=== PATIENT | male | born 1960 | race Two or more races ===

== ENCOUNTER 2025-03-29 21:20 | Inpatient (IN) | payer MEDICARE, OTHER ==
[~2025-03-29] VITALS: Ht 170.2 cm; Wt 85.7 kg
[2025-03-29 21:47] VITALS: O2SAT 97
[2025-03-29 22:11] LABS: Hematocrit 42.9 % (41.0-53.0); Hemoglobin 14.7 g/dL (13.5-17.5); Mean Corpuscular Hemoglobin 31.1 pg (28.0-32.0); Mean Corpuscular Volume 91.0 fL (80.0-100.0); Nucleated Red Blood Cells % 0.0 %
[2025-03-29 22:20] LABS: Potassium 3.5 mmol/L (3.5-5.1); Sodium 143 mmol/L (136-145)
[2025-03-29 22:21] LABS: Anion Gap 10 (5-15); Calcium 9.8 mg/dL (8.7-10.4); Carbon Dioxide 25 mmol/L (20-31)
--- NOTE | 2025-03-29 22:21 | ED.PDOC ---
History of Present Illness HPI Comments 65-year-old male presents with chief complaint of hypertension. Patient states his blood pressure has been elevated, unprovoked, since last night. Last at home blood pressure reading of 214 systolic prior to ED arrival. He reports being compliant with and taking his metoprolol at home, and noted his blood pressure initially improved after a workout this morning. No notable recent changes in medication, lifestyle, or diet. Associated intermittent headache for the past 2 days, right sided, gradual onset, throbbing, constant. He denies an having any weakness, numbness, patient tripped, speech or vision changes, chest pain, falls, head injury, or further acute symptoms. Upon arrival to ED triage, patient a blood pressure of 221/118. Chief Complaint: High Blood Pressure Time Seen by MD: 21:50 Reviewed Notes: Nurses Notes, Medications, Allergies Allergies: Coded Allergies: NO KNOWN ALLERGIES (Unverified , 03/29/25) Information Source: Patient Mode of Arrival: Ambulatory Severity: Moderate Timing: Hours Duration: Since onset Prehospital treatment: Treatment (See HPI) Past Medical History PAST MEDICAL HISTORY: HTN (Metoprolol) Surgical History: Denies all surgeries Family History Family History: Unknown Social History Smoker: Non-Smoker Alcohol: Denies ETOH Use Drugs: Denies Drug Use Lives In: Home Neurological: reports: headache All Other Systems: Reviewed and Negative (Comprehensive review of systems are negative unless otherwise stated in HPI) Physical Exam General Appearance: No Apparent Distress, Normal HEENT: Normal ENT Inspection, Pharynx Normal, TMs Normal Neck: Full Range of Motion, Non-Tender, Normal, Normal Inspection Respiratory: Chest Non-Tender, Lungs Clear, No Accessory Muscle Use, No Respiratory Distress, Normal Breath Sounds Cardiovascular: Bradycardia, No Edema, No JVD, No Murmur, No Gallop, Normal Peripheral Pulses, Other (Regular rhythm) Breast Exam: Deferred Gastrointestinal: No Organomegaly, Non Tender, No Pulsatile Mass, Normal Bowel Sounds, Soft Genitalia: Deferred Pelvic: Deferred Rectal: Deferred Extremities: No calf tenderness, Normal capillary refill, Normal inspection, Normal range of motion, Non-tender, No pedal edema Musculoskeletal : Apperance: Normal Neurologic: Alert, patient access specialist II-XII nml as Tested, No Motor Deficits, Normal Affect, Normal Mood, No Sensory Deficits Cerebellar Function: Normal Reflexes: Normal Skin: Dry, Normal Color, Warm Lymphatic: No Adenopathy Was a procedure done? Was a procedure done?: No EKG EKG : Pulse Rate (adult): 54 [place]: Normal Cardiac Rhythm: SB Block: None Hypertrophy: None ST: Normal Comments T-wave inversion in V3 Prolonged MO Differential Dx Considerations may include: Hypertensive emergency, hypertension-primary, inappropriate medication dosage, aneurysm, migraines, tension headache, electrolyte imbalance, dehydration, among others X-Ray, Labs, Meds, VS Vital Signs Date Time Temp Pulse Resp B/P (MAP) Pulse Ox O2 Delivery O2 Flow Rate FiO2 03/29/25 23:16 66 168/91 (116) 03/29/25 23:07 201/103 03/29/25 22:34 210/110 03/29/25 22:31 54 03/29/25 22:27 54 03/29/25 21:47 97 Room Air* 0 21 03/29/25 21:46 98.0 54 16 222/116 (151) 98 98.0 03/29/25 21:26 98.4 50 20 221/118 96 98.4 Lab Test 03/29/25 22:53 03/29/25 22:00 Range/Units Troponin I High Sensitivity 5 6 </=54 ng/L White Blood Count 7.5 4.4-10.8 10^3/uL Red Blood Count 4.72 4.5-5.90 10^6/uL Hemoglobin 14.7 13.5-17.5 g/dL Hematocrit 42.9 41.0-53.0 % Mean Corpuscular Volume 91.0 80.0-100.0 fL Mean Corpuscular Hemoglobin 31.1 28.0-32.0 pg Mean Corpuscular Hemoglobin Concent 34.2 32.0-36.0 g/dL Red Cell Distribution Width 13.7 11.8-14.3 % Platelet Count 161 140-450 10^3/uL Mean Platelet Volume 8.2 6.9-10.8 fL Neutrophils (%) (Auto) 50.9 37.0-80.0 % Lymphocytes (%) (Auto) 37.0 10.0-50.0 % Monocytes (%) (Auto) 8.2 0.0-12.0 % Eosinophils (%) (Auto) 3.1 0.0-7.0 % Basophils (%) (Auto) 0.8 0.0-2.0 % Neutrophils # (Auto) 3.8 1.6-8.6 10 ^3/uL Lymphocytes # (Auto) 2.8 0.4-5.4 10 ^3/uL Monocytes # (Auto) 0.6 0-1.3 10 ^3/uL Eosinophils # (Auto) 0.2 0-0.8 10 ^3/uL Basophils # (Auto) 0.1 0-0.2 10 ^3/uL Nucleated Red Blood Cells 0.0 % Prothrombin Time 10.1 9.3-11.8 sec Prothrombin Time INR 0.95 0.9-1.15 Activated Partial Thromboplast Time 23.5 L 24.5-34.5 SEC Sodium Level 143 136-145 mmol/L Potassium Level 3.5 3.5-5.1 mmol/L Chloride Level 108 H 98-107 mmol/L Carbon Dioxide Level 25 20-31 mmol/L Anion Gap 10 5-15 Blood Urea Nitrogen 17 9-23 mg/dL Creatinine 1.20 0.700-1.30 mg/dL Glomerular Filtration Rate Calc 67 >90 mL/min BUN/Creatinine Ratio 14.2 10.0-20.0 Serum Glucose 105 74-106 mg/dL Calcium Level 9.8 8.7-10.4 mg/dL B-Type Natriuretic Peptide 77.01 0-100 pg/mL Lipase 59 H 12-53 U/L Current Medications Medications (Trade) Dose Ordered Sig/Sugar Route Start Time Stop Time Status Last Admin Hydralazine HCl (Apresoline Injection) 10 mg ONCE ONCE IV 03/29/25 22:00 03/29/25 22:01 DC 03/29/25 22:34 Hydralazine HCl (Apresoline Injection) 10 mg ONCE ONCE IV 03/29/25 23:15 03/29/25 23:16 DC 03/29/25 23:[address] [address] Ph: [phone] DIAGNOSTIC IMAGING Diagnostic Imaging Report : [id number] Signed PATIENT: RADHA WILSON ACCT: [id number] UNIT: [id number] : 1960 LOC: ER ROOM / BED: / AGE / SEX: 65 / M ADM STATUS: REG ER SERVICE 53 ORDERING PHYSICIAN: STEWART ALBA MD PROCEDURE(s): HWOCT - HEAD WITHOUT CONTRAST REASON: WU ORDER NUMBER(s): [id number], ACCESSION NUMBER(s): [id number] EXAM: CT HEAD WITHOUT CONTRAST INDICATION: WU TECHNIQUE: CT of the head without intravenous contrast. Radiation Dose : 1. Head: CT Dose: CTDI volume is 61.16 mGy. Dose-length product is 980.28 mGy*cm The dose indicators for CT are the volume Computed Tomography (CT) Dose Index (CTDIvol) and the Dose Length Product (DLP), and are measured in units of mGy and mGy-cm, respectively. These indicators are not patient dose, but values generated from the CT scanner acquisition factors. The report includes radiation exposure data for exposures received during this examination. COMPARISON: None FINDINGS: Motion and streak artifact degrade fine detail. The cerebral parenchyma appears to be normal configuration and attenuation. The ventricles, cisterns, and sulci appear age-appropriate. There is no evidence for acute territorial infarct, hemorrhage, or mass effect. The orbits are normal. Mild mucosal thickening within the left frontal sinus. The soft tissues and osseous structures appear within normal limits. IMPRESSION: 1. No acute territorial infarct, intracranial hemorrhage, or mass effect. If clinical symptoms persist, MRI may be beneficial in further evaluation. Radiation optimization: All CT scans at this facility use at least one of these dose optimization techniques: automated exposure control mA and/or kV adjustment per patient size (includes targeted exams where dose is matched to clinical indication) or iterative reconstruction. ATED BY: SAUL NGUYEN MD DICTATED DATE/TIME: 03/29/252221 SIGNED BY: SAUL NGUYEN MD SIGNED DATE/TIME: 03/29/252221 CC: [place] [address] Ph: [phone] DIAGNOSTIC IMAGING Diagnostic Imaging Report : [id number] Signed PATIENT: RADHA WILSON ACCT: [id number] UNIT: [id number] : 1960 LOC: ER ROOM / BED: / AGE / SEX: 65 / M ADM STATUS: REG ER SERVICE 53 ORDERING PHYSICIAN: STEWART ALBA MD PROCEDURE(s): CXRP - CHEST PORTABLE REASON: hypertension ORDER NUMBER(s): [id number], ACCESSION NUMBER(s): [id number] INDICATION: hypertension TECHNIQUE: Frontal view of the chest. COMPARISON: None FINDINGS/IMPRESSION: Hazy bilateral pulmonary opacities. Enlarged cardiomediastinal silhouette. No pleural effusion or pneumothorax. No acute osseous abnormality. ATED BY: SAUL NGUYEN MD DICTATED DATE/TIME: 03/29/252251 SIGNED BY: SAUL NGUYEN MD SIGNED DATE/TIME: 03/29/252251 CC: X-Ray, Labs, Meds, VS Comment Patient presenting with headache and uncontrolled hypertension for the past 2 days. Patient is significantly hypertensive on arrival. Neuro exam is nonfocal patient is otherwise well-appearing. Lab work (CBC, BMP) to evaluate for evidence of severe anemia, electrolyte abnormality including hypokalemia, hyperkalemia, hypernatremia, hyponatremia, hyperglycemia, hypoglycemia, etc. EKG and troponin to evaluate for evidence of arrhythmia, ACS, AMI Chest x-ray to evaluate for pneumonia, pneumothorax, volume overload. CTA to evaluate for intracranial hemorrhage, large mass, acute infarct, fracture IV hydralazine Re-evaluate Social determinant surveillance affecting care: Social determinants of health that will affect the patient's care: Poor access to outpatient care/followup (provided outpatient resources) Time of 1ST Reevaluation: 22:30 Reevaluation 1ST: Unchanged Patient Education/Counseling: Diagnosis, Treatment, Other (Need for admission) Family Education/Counseling: No Family Present SEPSIS Sepsis Screen Date sepsis recognized/suspect: Mar 29, 2025 Time Sepsis recognized/suspect: 2125 Recent Procedure: No On Antibiotic Therapy: No Respiratory Rate >20: No Heart Rate >90: No Temp<36 C (96.8 F) or >38.3 C: No SBP <90 or MAP <65 mmHG: No New Acute Mental Status Change: No Is the patient on CPAP, BIPAP,: No Physician Orders Chest Portable (03/29/25 21:54) Head Without Contrast (03/29/25 21:54) Troponin-I Hs (03/30/25 00:54) Electrocardigram (03/29/25 22:54) Electrocardigram (03/30/25 00:54) (Nf) Irbesartan (03/30/25 10:00) Metoprolol Tartrate Tablet (Lopressor Ta (03/30/25 10:00) Atorvastatin (Lipitor) (03/30/25 22:00) Hydralazine Injection (Apresoline Inject (03/29/25 23:45) Admit (03/29/25 23:35) Ondansetron Hcl (Zofran) (03/29/25 23:45) Cardiac Diet-2gna,Lofat,Lochol (03/30/25 Breakfast) Echo 2d Mode Cardiac Dop (03/29/25 23:35) Condition: Stable (03/29/25 23:35) Acetaminophen Tablet (Tylenol Tablet) (03/29/25 23:45) Bedrest With Bathroom Privileg (03/29/25 23:35) Renal Artery Lmtd (03/29/25 23:35) Losartan Tablet (Cozaar Tablet) (03/30/25 10:00) Vital Signs Date Time Temp Pulse Resp B/P (MAP) Pulse Ox O2 Delivery O2 Flow Rate FiO2 03/29/25 23:16 66 168/91 (116) 03/29/25 23:07 201/103 03/29/25 22:34 210/110 03/29/25 22:31 54 03/29/25 22:27 54 03/29/25 21:47 97 Room Air* 0 21 03/29/25 21:46 98.0 54 16 222/116 (151) 98 98.0 03/29/25 21:26 98.4 50 20 221/118 96 98.4 Laboratory Tests Test 03/29/25 22:00 White Blood Count 7.5 10^3/uL (4.4-10.8) Medications Medications Dose Ordered Sig/Sugar Route Start Time Stop Time Status Last Admin Dose Admin Hydralazine HCl 10 mg ONCE ONCE IV 03/29/25 22:00 03/29/25 22:01 DC 03/29/25 22:34 Hydralazine HCl 10 mg ONCE ONCE IV 03/29/25 23:15 03/29/25 23:16 DC 03/29/25 23:07 Departure 1 Departure Time of Disposition: 23:43 (On reassessment, patient persistently hypotensive despite 2 doses of IV hydralazine. Patient bradycardic, so unable to dose patient's home beta-patricia. We will admit for further management of hyperte nsive urgency.) Impression: Primary Impression: Hypertensive urgency Additional Impressions: Acute headache Uncontrolled hypertension Disposition: ADMITTED INPATIENT Admit to: Tele Condition: Serious Critical Care Note Critical Care Time?: Yes (35 min-critical care time only) Critical care comment: hypertensive urgency Stability Stability form required: No Heart Score Heart Score: Heart Score Response (Comments) Value History N/A 0 EKG N/A 0 Age N/A 0 Risk Factors N/A 0 Troponin N/A 0 Total 0 I personally scribed for STEWART ALBA MD ([email or web address]) on 03/29/25 at 22:21. Electronically submitted by Wang Hearn ([email or web address]). I personally scribed for STEWART ALBA MD ([email or web address]) on 03/29/25 at 22:31. Electronically submitted by Wang Hearn ([email or web address]). I personally scribed for STEWART ALBA MD ([email or web address]) on 03/29/25 at 23:18. Electronically submitted by Wang Hearn ([email or web address]). STEWART ALBA MD Mar 29, 2025 22:21
[2025-03-29 22:24] LABS: Chloride 108 mmol/L (98-107)
--- NOTE | 2025-03-29 22:24 | DVH ---
EXAM: CT HEAD WITHOUT CONTRAST INDICATION: WU TECHNIQUE: CT of the head without intravenous contrast. Radiation Dose : 1. Head: CT Dose: CTDI volume is 61.16 mGy. Dose-length product is 980.28 mGy*cm The dose indicators for CT are the volume Computed Tomography (CT) Dose Index (CTDIvol) and the Dose Length Product (DLP), and are measured in units of mGy and mGy-cm, respectively. These indicators are not patient dose, but values generated from the CT scanner acquisition factors. The report includes radiation exposure data for exposures received during this examination. COMPARISON: None FINDINGS: Motion and streak artifact degrade fine detail. The cerebral parenchyma appears to be normal configuration and attenuation. The ventricles, cisterns, and sulci appear age-appropriate. There is no evidence for acute territorial infarct, hemorrhage, or mass effect. The orbits are normal. Mild mucosal thickening within the left frontal sinus. The soft tissues and osseous structures appear within normal limits. IMPRESSION: 1. No acute territorial infarct, intracranial hemorrhage, or mass effect. If clinical symptoms persist, MRI may be beneficial in further evaluation. Radiation optimization: All CT scans at this facility use at least one of these dose optimization techniques: automated exposure control mA and/or kV adjustment per patient size (includes targeted exams where dose is matched to clinical indication) or iterative reconstruction.
[2025-03-29 22:26] LABS: BUN/Creatinine Ratio 14.2 (10.0-20.0); Blood Urea Nitrogen 17 mg/dL (9-23); Glucose 105 mg/dL (74-106)
[2025-03-29 22:28] LABS: INR 0.95 (0.9-1.15); Partial Thromboplastin Time 23.5 SEC (24.5-34.5); Prothrombin Time 10.1 sec (9.3-11.8)
[2025-03-29] MEDS: hydrALAZINE HCL 20 MG/ML VL IV ONE ×2 (22:34→23:07)
--- NOTE | 2025-03-29 22:34 | ECG ---
[facility] Test Date: 2025-03-29 Test Time: 22:27:07 Pat Name: RADHA WILSON Department: ED Room: 0284 Gender: M Remote [employer] Underwriter: SRIDHAR : 1960 Requested By: STEWART ALBA Order Number: [id number] Reading MD: Luther Palomares Measurements Intervals [place] Rate: 54 P: 47 PA: 274 QRS: 72 QRSD: 116 T: 37 QT: 461 QTc: 437 Interpretive Statements Sinus rhythm Prolonged PA interval Nonspecific intraventricular conduction delay Borderline T abnormalities, anterior leads Baseline wander in lead(s) I,V4,V6 Electronically Signed On 03-30-2025 15:08:10 PST by Luther Palomares Please click the below link to view image of tracing.
[2025-03-29 22:38] LABS: Lipase 59 U/L (12-53)
--- NOTE | 2025-03-29 22:55 | DVH ---
INDICATION: hypertension TECHNIQUE: Frontal view of the chest. COMPARISON: None FINDINGS/IMPRESSION: Hazy bilateral pulmonary opacities. Enlarged cardiomediastinal silhouette. No pleural effusion or pneumothorax. No acute osseous abnormality.
[2025-03-29] MEDS ORDERED: ONDANSETRON HCL 4 MG/2 ML VIAL IV PRN (23:45)
[2025-03-30] VITALS (8 sets, daily range): BP systolic 131–155; BP diastolic 66–96; PULSE 73–82; RESP 17–18; TEMP 98–98.9; O2SAT 95–97
--- NOTE | 2025-03-30 03:44 | DVHHP2 ---
History of Present Illness Reason for Visit: HYPERTENSION History of Present Illness 65-YEAR-OLD MALE PRESENTS FOR EVALUATION OF HIGH BLOOD PRESSURE. PATIENT REPORTS A TWO DAY HISTORY OF HAVING ELEVATED BLOOD PRESSURE. HE REPORTS BEING COMPLIANT WITH HIS MEDICATIONS. YESTERDAY HE DEVELOPED DIZZINESS AND A HEADACHE. DENIES CHEST PAIN OR PALPITATIONS. NO OTHER ACUTE COMPLAINTS REPORTED. Past Medical History HYPERTENSION Past Surgical History DENIES Family History NONCONTRIBUTORY Smoke: No ALCOHOL: none Drugs: None Lives: with Family Review of Systems Review of Systems REVIEW OF SYSTEMS ARE CURRENTLY NEGATIVE OTHERWISE ADDRESSED IN HPI. Allergies: Coded Allergies: NO KNOWN ALLERGIES (Unverified , 03/29/25) Medications Current Medications Medications Dose Ordered Sig/Sugar Route Start Time Stop Time Status Last Admin Dose Admin Metoprolol Tartrate 50 mg BID PO 03/30/25 10:00 Atorvastatin Calcium 10 mg HS PO 03/30/25 22:00 Hydralazine HCl 10 mg Q6HP PRN IV 03/29/25 23:45 Ondansetron HCl 4 mg Q4HP PRN IV 03/29/25 23:45 Acetaminophen 650 mg Q6HP PRN PO 03/29/25 23:45 Losartan Potassium 50 mg DAILY PO 03/30/25 10:00 Exam Vital Signs Vital Signs Date Time Temp Pulse Resp B/P (MAP) Pulse Ox O2 Delivery O2 Flow Rate FiO2 03/30/25 02:00 63 25 138/91 (107) 94 03/29/25 21:47 Room Air* 0 21 03/29/25 21:46 98.0 98.0 Exam GEN: 65-YEAR-OLD MALE IN NO APPARENT DISTRESS. SKIN: WARM, DRY, NORMAL COLOR AND TEXTURE, NO RASH. HEENT: NORMOCEPHALIC ATRAUMATIC, MUCOUS MEMBRANES MOIST AND PINK. NECK: CERVICAL AND SUPRACLAVICULAR NODES NORMAL WITHOUT ENLARGEMENT, TRACHEA IS MIDLINE, THYROID GLAND IS NORMAL WITHOUT MASSES. PULMONARY: CLEAR TO AUSCULTATION AND PERCUSSION BILATERALLY. CARDIAC: REGULAR RATE AND RHYTHM. NO MURMUR ABDOMEN: SOFT, NONTENDER, NONDISTENDED, BOWEL SOUNDS PRESENT ALL 4 QUADRANTS, NO GUARDING, NO RIGIDITY, NO ORGANOMEGALY. EXTREMITIES: NO CYANOSIS, CLUBBING, NO EDEMA NEURO: CRANIAL NERVES II THROUGH XII GROSSLY INTACT, NORMAL AFFECT AND SPEECH, NO FOCAL MOTOR DEFICITS. Labs/Xrays ORDERING PHYSICIAN: STEWART ALBA MD PROCEDURE(s): CXRP - CHEST PORTABLE REASON: hypertension ORDER NUMBER(s): [id number], ACCESSION NUMBER(s): [id number] INDICATION: hypertension TECHNIQUE: Frontal view of the chest. COMPARISON: None FINDINGS/IMPRESSION: Hazy bilateral pulmonary opacities. Enlarged cardiomediastinal silhouette. No pleural effusion or pneumothorax. No acute osseous abnormality. RING PHYSICIAN: STEWART ALBA MD PROCEDURE(s): HWOCT - HEAD WITHOUT CONTRAST REASON: WU ORDER NUMBER(s): [id number], ACCESSION NUMBER(s): [id number] EXAM: CT HEAD WITHOUT CONTRAST INDICATION: WU TECHNIQUE: CT of the head without intravenous contrast. Radiation Dose : 1. Head: CT Dose: CTDI volume is 61.16 mGy. Dose-length product is 980.28 mGy*cm The dose indicators for CT are the volume Computed Tomography (CT) Dose Index (C TDIvol) and the Dose Length Product (DLP), and are measured in units of mGy and mGy-cm, respectively. These indicators are not patient dose, but values generated from the CT scanner acquisition factors. The report includes radiation exposure data for exposures received during this examination. COMPARISON: None FINDINGS: Motion and streak artifact degrade fine detail. The cerebral parenchyma appears to be normal configuration and attenuation. The ventricles, cisterns, and sulci appear age-appropriate. There is no evidence for acute territorial infarct, hemorrhage, or mass effect. The orbits are normal. Mild mucosal thickening within the left frontal sinus. The soft tissues and osseous structures appear within normal limits. IMPRESSION: 1. No acute territorial infarct, intracranial hemorrhage, or mass effect. If clinical symptoms persist, MRI may be beneficial in further evaluation. Radiation optimization: All CT scans at this facility use at least one of these dose optimization techniques: automated exposure control mA and/or kV adjustment per patient size (includes targeted exams where dose is matched to clinical indication) or iterative reconstruction. Labs Test 03/29/25 22:53 03/29/25 22:00 Range/Units Troponin I High Sensitivity 5 </=54 ng/L White Blood Count 7.5 4.4-10.8 10^3/uL Red Blood Count 4.72 4.5-5.90 10^6/uL Hemoglobin 14.7 13.5-17.5 g/dL Hematocrit 42.9 41.0-53.0 % Mean Corpuscular Volume 91.0 80.0-100.0 fL Mean Corpuscular Hemoglobin 31.1 28.0-32.0 pg Mean Corpuscular Hemoglobin Concent 34.2 32.0-36.0 g/dL Red Cell Distribution Width 13.7 11.8-14.3 % Platelet Count 161 140-450 10^3/uL Mean Platelet Volume 8.2 6.9-10.8 fL Neutrophils (%) (Auto) 50.9 37.0-80.0 % Lymphocytes (%) (Auto) 37.0 10.0-50.0 % Monocytes (%) (Auto) 8.2 0.0-12.0 % Eosinophils (%) (Auto) 3.1 0.0-7.0 % Basophils (%) (Auto) 0.8 0.0-2.0 % Neutrophils # (Auto) 3.8 1.6-8.6 10 ^3/uL Lymphocytes # (Auto) 2.8 0.4-5.4 10 ^3/uL Monocytes # (Auto) 0.6 0-1.3 10 ^3/uL Eosinophils # (Auto) 0.2 0-0.8 10 ^3/uL Basophils # (Auto) 0.1 0-0.2 10 ^3/uL Nucleated Red Blood Cells 0.0 % Prothrombin Time 10.1 9.3-11.8 sec Prothrombin Time INR 0.95 0.9-1.15 Activated Partial Thromboplast Time 23.5 L 24.5-34.5 SEC Sodium Level 143 136-145 mmol/L Potassium Level 3.5 3.5-5.1 mmol/L Chloride Level 108 H 98-107 mmol/L Carbon Dioxide Level 25 20-31 mmol/L Anion Gap 10 5-15 Blood Urea Nitrogen 17 9-23 mg/dL Creatinine 1.20 0.700-1.30 mg/dL Glomerular Filtration Rate Calc 67 >90 mL/min BUN/Creatinine Ratio 14.2 10.0-20.0 Serum Glucose 105 74-106 mg/dL Calcium Level 9.8 8.7-10.4 mg/dL B-Type Natriuretic Peptide 77.01 0-100 pg/mL Lipase 59 H 12-53 U/L SEPSIS Sepsis Screen Date sepsis recognized/suspect: Mar 29, 2025 Time Sepsis recognized/suspect: 2125 Recent Procedure: No On Antibiotic Therapy: No Respiratory Rate >20: No Heart Rate >90: No Temp<36 C (96.8 F) or >38.3 C: No SBP <90 or MAP <65 mmHG: No New Acute Mental Status Change: No Is the patient on CPAP, BIPAP,: No Physician Orders Chest Portable (03/29/25 21:54) Head Without Contrast (03/29/25 21:54) Electrocardigram (03/29/25 22:54) Electrocardigram (03/30/25 00:54) Metoprolol Tartrate Tablet (Lopressor Ta (03/30/25 10:00) Atorvastatin (Lipitor) (03/30/25 22:00) Hydralazine Injection (Apresoline Inject (03/29/25 23:45) Admit (03/29/25 23:35) Ondansetron Hcl (Zofran) (03/29/25 23:45) Cardiac Diet-2gna,Lofat,Lochol (03/30/25 Breakfast) Echo 2d Mode Cardiac Dop (03/29/25 23:35) Condition: Stable (03/29/25 23:35) Acetaminophen Tablet (Tylenol Tablet) (03/29/25 23:45) Bedrest With Bathroom Privileg (03/29/25 23:35) Renal Artery Lmtd (03/29/25 23:35) Losartan Tablet (Cozaar Tablet) (03/30/25 10:00) Thyroid Stimulating Hormone (03/30/25 03:38) Lipid Panel (03/30/25 03:38) Vital Signs Date Time Temp Pulse Resp B/P (MAP) Pulse Ox O2 Delivery O2 Flow Rate FiO2 03/30/25 02:00 63 25 138/91 (107) 94 03/30/25 00:00 45 21 121/70 (87) 97 03/29/25 23:16 66 168/91 (116) 03/29/25 23:07 201/103 03/29/25 22:34 210/110 03/29/25 22:31 54 03/29/25 22:27 54 03/29/25 21:47 97 Room Air* 0 21 03/29/25 21:46 98.0 54 16 222/116 (151) 98 98.0 03/29/25 21:26 98.4 50 20 221/118 96 98.4 Laboratory Tests Test 03/29/25 22:00 White Blood Count 7.5 10^3/uL (4.4-10.8) Medications Medications Dose Ordered Sig/Sugar Route Start Time Stop Time Status Last Admin Dose Admin Hydralazine HCl 10 mg ONCE ONCE IV 03/29/25 22:00 03/29/25 22:01 DC 03/29/25 22:34 10 MG Hydralazine HCl 10 mg ONCE ONCE IV 03/29/25 23:15 03/29/25 23:16 DC 03/29/25 23:07 10 MG Assessment/Plan Assessment/Plan ASSESSMENT HYPERTENSIVE URGENCY PLAN ADMIT THE PATIENT TO MED SURGE TO THE HOSPITALIST RESUME HOME MEDICATIONS NEEDED ANTIHYPERTENSIVES ECHOCARDIOGRAM/RENAL ARTERY ULTRASOUND PENDING CONTINUE TREATMENT PER ORDERS. Plan discussed with: Patient My Orders Orders - [facility] Procedure Category Date Status Time Metoprolol Tartrate PHA 03/30/25 In Process Tablet (Lopressor Ta 10:00 Atorvastatin (Lipitor) PHA 03/30/25 In Process 22:00 Hydralazine Injection PHA 03/29/25 In Process (Apresoline Inject 23:45 Admit ADMIT 03/29/25 Transmitted 23:35 Ondansetron Hcl PHA 03/29/25 In Process (Zofran) 23:45 Cardiac DIET 03/30/25 Transmitted Diet-2gna,Lofat,Lochol Breakfast Echo 2d Mode Cardiac US 03/29/25 Logged DOP 23:35 Condition: Stable ALEXIS 03/29/25 In Process 23:35 Acetaminophen Tablet PHA 03/29/25 In Process (Tylenol Tablet) 23:45 Bedrest With Bathroom ALEXIS 03/29/25 In Process Privileg 23:35 Renal Artery Lmtd US 03/29/25 Taken 23:35 Losartan Tablet PHA 03/30/25 In Process (Cozaar Tablet) 10:00 Thyroid Stimulating LAB 03/30/25 Transmitted Hormone 03:38 Lipid Panel LAB 03/30/25 Transmitted 03:38 Date of Service: Mar 29, 2025 Billing Provider: SUNSHINE REGAN Common Visit Codes: [id number] INP/OBS CARE (HIGH) SUNSHINE REGAN Mar 30, 2025 03:43
[2025-03-30 05:24] LABS: HDL Cholesterol 52 mg/dL (40-59)
[2025-03-30 05:25] LABS: Cholesterol 170 mg/dL (< 200)
[2025-03-30 05:33] LABS: Triglycerides 198 mg/dL (< 150)
[2025-03-30] MEDS: hydrALAZINE HCL 20 MG/ML VL IV PRN (07:04)
[2025-03-30] MEDS: LOSARTAN POTASSIUM 50 MG TAB PO SCH (10:16)
[2025-03-30] MEDS: METOPROLOL TARTRATE 50 MG TAB PO SCH (10:17)
[2025-03-30] MEDS: ACETAMINOPHEN 325 MG TAB PO PRN (10:39)
--- NOTE | 2025-03-30 13:34 | DVHPN2 ---
Reviewed: Care Plan, H&P, Labs, Medications, Previous Orders, Radiology Changes from previous H/P or p: No Changes Objective Vitals Vital Signs Date Time Temp Pulse Resp B/P (MAP) Pulse Ox O2 Delivery O2 Flow Rate FiO2 03/30/25 10:39 98.4 03/30/25 10:17 82 155/95 03/30/25 09:00 18 96 03/30/25 05:48 Room Air* 0 21 Medications Current Medications Medications Dose Ordered Sig/Sugar Route Start Time Stop Time Status Last Admin Dose Admin Metoprolol Tartrate 50 mg BID PO 03/30/25 10:00 03/30/25 10:17 50 MG Atorvastatin Calcium 10 mg HS PO 03/30/25 22:00 Hydralazine HCl 10 mg Q6HP PRN IV 03/29/25 23:45 03/30/25 07:04 10 MG Ondansetron HCl 4 mg Q4HP PRN IV 03/29/25 23:45 Acetaminophen 650 mg Q6HP PRN PO 03/29/25 23:45 03/30/25 10:39 650 MG Losartan Potassium 50 mg DAILY PO 03/30/25 10:00 03/30/25 10:16 50 MG Laboratory Results Laboratory Tests 03/29/25 22:00 Chemistry Test 03/29/25 22:00 Calcium Level 9.8 mg/dL (8.7-10.4) Coagulation Test 03/29/25 22:00 Prothrombin Time 10.1 sec (9.3-11.8) Prothrombin Time INR 0.95 (0.9-1.15) Activated Partial Thromboplast Time 23.5 SEC (24.5-34.5) L Lipid panel Test 03/29/25 22:00 Cholesterol Level 170 mg/dL (< 200) HDL Cholesterol 52 mg/dL (40-59) Lipase 59 U/L (12-53) H Triglycerides Level 198 mg/dL (< 150) H Cardiac Markers Test 03/29/25 22:00 B-Type Natriuretic Peptide 77.01 pg/mL (0-100) HgA1c, TSH Test 03/29/25 22:00 Thyroid Stimulating Hormone (TSH) 3.95 uIU/mL (0.55-4.78) Labs and/or images reviewed: Labs reviewed by me, Image(s) reviewed by me Assessment/Plan Assessment/Plan Hypertensive urgency blood pressure 226/118 : Metoprolol losartan, cardiology consult Hypercholesterolemia: Lipitor: CT head negative Chest x-ray neg TSH normal check Urine drug screen Plan discussed with: Patient My Orders Orders - ADEEL HOPKINS MD Procedure Category Date Status Time * Cardiology Consult CONS 03/30/25 Transmitted 13:29 Date of Service: Mar 30, 2025 Billing Provider: ADEEL HOPKINS MD Common Visit Codes: [id number] INP/OBS CARE(HIGH) ADEEL HOPKINS MD Mar 30, 2025 13:34
--- NOTE | 2025-03-30 18:53 | DVHSR ---
APPROVED REPORT EXAM: Two-dimensional and M-mode echocardiogram with Doppler and color Doppler. Blood Pressure: 167/93 mmHg INDICATION Hypertension RISK FACTORS Height: 5'7", Weight: 191 DIMENSIONS LVDd 4.5 (3.8-5.7cm) LA (2D) 3.3 (1.9-4.0cm) Aortic Root 3.6 (2.0-3.7cm) LVDs 2.5 (2.5-4.0cm) LA (MM) (1.9-4.0cm) Aortic Cusp Exc 2.5 (1.5-2.0cm) EF (%) 76.0 (55-70%) Rt. Atrium 3.6 (1.9-4.0cm) Asc. Aorta 4.0 cm IVSd 1.2 (0.7-1.1cm) RV (D) 3.8 (1.8-2.4cm) PWd 1.1 (0.7-1.1cm) Mitral Valve Mitral Mitral Stenosis E wave 0.74m/s MV Mean GR. mmHg A wave 1.12m/s MV Peak GR. mmHg E/A ratio 0.7 2D MVA cm2 DECEL Time 147ms PRESS 1/2 Time ms Aortic Valve Aortic Valve Aortic Stenosis V1 1.42m/s AO Mean GR. 5mmHg V2 1.47m/s AO Peak GR. 9mmHg LVOT Diameter 2.0 (1.8-2.4cm) Doppler CHEL 3.03cm2 Pulmonic Valve V2 0.98m/s Conclusion Normal left ventricular size and systolic function. Calculated ejection fraction is 75%. There is moderate concentric left ventricular hypertrophy. There is grade 1 diastolic dysfunction Normal right ventricular size and systolic function. Aortic valve is tricuspid. There is no aortic stenosis or aortic regurgitation There is trace pulmonic regurgitation There is no pericardial effusion Inferior vena cava could not be visualized.
[2025-03-30] MEDS: ATORVASTATIN 20 MG TAB PO SCH (22:07)
[2025-03-31 01:00] VITALS: BP 128/76; PULSE 68; RESP 17; TEMP 99.1; O2SAT 95
[2025-03-31 05:00] VITALS: BP 151/92; PULSE 57; RESP 17; TEMP 97.5; O2SAT 94
[2025-03-31 08:00] VITALS: PULSE 54; RESP 16; O2SAT 95
[2025-03-31 08:41] VITALS: BP_SYST 150; BP_DIAS 90; BP_DIAS 91; PULSE 54; RESP 16; TEMP 98.2; O2SAT 95
[2025-03-31 13:00] VITALS: BP 146/94; PULSE 48; RESP 16; TEMP 98.6; O2SAT 96
[2025-03-31 14:32] LABS: Amphetamine Screen, Urine Neg (NEGATIVE); Barbiturate Scree,Urine Neg (NEGATIVE); Benzodiazephine Screen, Urine Neg (NEGATIVE); Cannabinoid Screen, Urine Neg (NEGATIVE); Cocaine Screen, Urine Neg (NEGATIVE); Opiate Scree,Urine Neg (NEGATIVE); Phencyclidine Screen, Urine Neg (NEGATIVE)
[2025-03-31] MEDS ORDERED: METO-158 PO (14:52)
[2025-03-31] MEDS ORDERED: LOSA-533 PO (14:52)
[2025-03-31] MEDS ORDERED: ATOR-507 PO (14:52)
--- NOTE | 2025-03-31 14:56 | DVHDS2 ---
Discharge Summary Date of Admission Mar 29, 2025 at 23:35 Date of Discharge: Mar 31, 2025 Admitting Diagnosis Accelerated blood pressure Wounds: None Labs/Diagnostic Data: Laboratory Results Test 03/31/25 12:18 03/29/25 22:53 03/29/25 22:00 Urine Opiates Screen Neg (NEGATIVE) Urine Fentanyl Screen Neg (NEGATIVE) Urine Barbiturates Screen Neg (NEGATIVE) Urine Phencyclidine Screen Neg (NEGATIVE) Urine Amphetamines Screen Neg (NEGATIVE) Urine Benzodiazepines Screen Neg (NEGATIVE) Urine Cocaine Screen Neg (NEGATIVE) Urine Cannabinoids Screen Neg (NEGATIVE) Troponin I High Sensitivity 5 ng/L (</=54) White Blood Count 7.5 10^3/uL (4.4-10.8) Red Blood Count 4.72 10^6/uL (4.5-5.90) Hemoglobin 14.7 g/dL (13.5-17.5) Hematocrit 42.9 % (41.0-53.0) Mean Corpuscular Volume 91.0 fL (80.0-100.0) Mean Corpuscular Hemoglobin 31.1 pg (28.0-32.0) Mean Corpuscular Hemoglobin Concent 34.2 g/dL (32.0-36.0) Red Cell Distribution Width 13.7 % (11.8-14.3) Platelet Count 161 10^3/uL (140-450) Mean Platelet Volume 8.2 fL (6.9-10.8) Neutrophils (%) (Auto) 50.9 % (37.0-80.0) Lymphocytes (%) (Auto) 37.0 % (10.0-50.0) Monocytes (%) (Auto) 8.2 % (0.0-12.0) Eosinophils (%) (Auto) 3.1 % (0.0-7.0) Basophils (%) (Auto) 0.8 % (0.0-2.0) Neutrophils # (Auto) 3.8 10 ^3/uL (1.6-8.6) Lymphocytes # (Auto) 2.8 10 ^3/uL (0.4-5.4) Monocytes # (Auto) 0.6 10 ^3/uL (0-1.3) Eosinophils # (Auto) 0.2 10 ^3/uL (0-0.8) Basophils # (Auto) 0.1 10 ^3/uL (0-0.2) Nucleated Red Blood Cells 0.0 % Prothrombin Time 10.1 sec (9.3-11.8) Prothrombin Time INR 0.95 (0.9-1.15) Activated Partial Thromboplast Time 23.5 SEC (24.5-34.5) Sodium Level 143 mmol/L (136-145) Potassium Level 3.5 mmol/L (3.5-5.1) Chloride Level 108 mmol/L (98-107) Carbon Dioxide Level 25 mmol/L (20-31) Anion Gap 10 (5-15) Blood Urea Nitrogen 17 mg/dL (9-23) Creatinine 1.20 mg/dL (0.700-1.30) Glomerular Filtration Rate Calc 67 mL/min (>90) BUN/Creatinine Ratio 14.2 (10.0-20.0) Serum Glucose 105 mg/dL (74-106) Calcium Level 9.8 mg/dL (8.7-10.4) B-Type Natriuretic Peptide 77.01 pg/mL (0-100) Triglycerides Level 198 mg/dL (< 150) Cholesterol Level 170 mg/dL (< 200) LDL Cholesterol 91 mg/dL (< 100) HDL Cholesterol 52 mg/dL (40-59) Lipase 59 U/L (12-53) Thyroid Stimulating Hormone (TSH) 3.95 uIU/mL (0.55-4.78) Other Laboratory Tests 03/29/25 22:00 Brief Hx & Hospital Course: 65-year-old male with a history of hypertension came in complaining of elevated blood pressure. No chest pain headache or shortness of breaths blood pressure was 200 systolic. Treated with the metoprolol tartrate losartan and cholesterol was [place] with Lipitor blood pressure came down to 150 at the time of discharge and patient is being discharged home. Prescription for losartan metoprolol and Lipitor transmitted to the pharmacy. Patient was educated about compliance with the medications Consults/Reason for consult None Cardiology consult was placed but they advised the primary care Dr could take care of the blood pressure. Operations or Procedures CT head Condition at Discharge: Fair Final Diagnosis/Problems List Hypertensive urgency blood pressure 226/118 : Metoprolol losartan, cardiology consult Hypercholesterolemia: Lipitor: CT head negative Chest x-ray neg TSH normal Discharge Disposition: Home Discharge Instruct/Medications Diet: Cardiac 2g Na,low cholest Activity: Light activity Follow Up/Referral: Take Medications as prescribed Follow up with the primary Dr in one week Medications: Losartan Metoprolol tartrate Lipitor Transmitted to pharmacy Scheduled Atorvastatin Calcium (Lipitor), 1 TAB PO QPM Losartan Potassium (Losartan Potassium), 2 TAB PO DAILY Metoprolol Tartrate (Metoprolol Tartrate), 50 MG PO BID 39 (Time taken for discharge summary 39 minutes) Discharge Statement: "Patient was advised to return to the ER or call 911 if any headaches, dizziness, shortness of breath, chest pain, abdominal pain, bleeding, fevers, or worsening of medical condition. Patient was counseled about treatment plan, medications, possible side effects, patientverbalized understanding. All questions were answered to the best of my ability. This discharge took greater then 30 minutes in planning, reviewing documentation, counseling the patient, and discussing with other team members." ASSESSMENT ASSESSMENT Hospital Course Improved Assessment Hypertensive urgency blood pressure 226/118 : Metoprolol losartan, cardiology consult Hypercholesterolemia: Lipitor: CT head negative Chest x-ray neg TSH normal Date of Service: Mar 31, 2025 Billing Provider: ADEEL HOPKINS MD Common Visit Codes: 60186-KPM/OBS DISCH DAY >30min ADEEL HOPKINS MD Mar 31, 2025 14:56
== END 2025-03-31 17:54 | disposition home or self-care (01) | DRG 305 ==
LOC: ER 21:20 → OVERFLOW 23:35 → WEST WING 03-30 05:24
PROVIDERS: ADMIT Family Medicine; ATTEND Family Medicine
DX: I16.0 Hypertensive urgency (principal); E78.00 Pure hypercholesterolemia, unspecified; Z79.899 Other long term (current) drug therapy
CPT/HCPCS: 36415; 70450; 71045; 80048; 80061; 80307; 83690; 83880; 84443; 84484; 85025; 85610; 85730; 93005; 93306; 96374; 99291; G0378